=== PATIENT | male | born 1955 | race Caucasian/White ===

== ENCOUNTER 2016-10-04 12:19 | Emergency (ER) | payer MEDICARE ==
--- NOTE | 2016-10-04 14:03 | ER ---
ADMIT: 10/04/2016 RM/LOC: [facility] MR#: [id number] [address] [id number] JIMY LINARES , Emergency Room Report SEX: M AGE: 61 : 1955 DATE: 10/04/2016 ADDENDUM: A 61-year-old male, comes in with complaints of fracture visiting with family after dinner last night down on a crouton and a salad and the left molar broke. He is in today because he is having pain, and he is planning on leaving today to drive home to [place]. On examination, he has been obviously fractured tooth #17. I do not see any signs of infection. It actually does look like a fresh fracture. The patient is given a script for amoxicillin as he has concerned about him developing infection before him getting see a dentist. He is also given 10 [place] to use as needed for pain. Lokesh Tyson MD/ nolberto JOB #: [id number] CC: Lokesh Tyson MD, Attending Physician
== END 2016-10-04 13:18 | disposition home or self-care (01) ==
LOC: ER 12:19
DX: S02.5XXA Fracture of tooth (traumatic), initial encounter for closed fracture (principal); I25.2 Old myocardial infarction; F17.210 Nicotine dependence, cigarettes, uncomplicated; X58.XXXA Exposure to other specified factors, initial encounter